=== PATIENT | female | born 1955 | race Caucasian/White ===

== ENCOUNTER 2023-02-25 04:01 | Emergency (ER) | payer MEDICARE, OTHER ==
[~2023-02-25] VITALS: Ht 167.6 cm; Wt 83.9 kg
[~2023-02-25 04:01] MED LIST: BIEST/PROG/TEST TOP; CALC1.25T PO; CYAN1000 PO; ERGO400 PO; FAMO20 PO; HYDSUL200 PO; LUTEIN PO; NORT75 PO; Omeprazole20 M1; SPIR25 PO; [UNRECOGNIZED DRUG - OTHER] PO
[2023-02-25 05:48] LABS: BASOPHILS ABSOLUTE AUTO 0.08 K/mm3 (0.00-0.23); BASOPHILS PERCENT AUTO 1 % (0-2); EOSINOPHILS ABSOLUTE AUTO 0.23 K/mm3 (0.00-0.68); EOSINOPHILS PERCENT AUTO 3 % (0-6); Hematocrit 42.6 % (33.0-51.0); Hemoglobin 14.5 g/dL (11.5-16.0); IMMATURE GRAN ABSOLUTE AUTO 0.04 K/mm3 (0.00-0.10); IMMATURE GRAN PERCENT AUTO 0 % (0-1); LYMPHOCYTES ABSOLUTE AUTO 2.24 K/mm3 (0.84-5.20); LYMPHOCYTES PERCENT AUTO 25 % (21-46); MONOCYTES ABSOLUTE AUTO 0.78 K/mm3 (0.16-1.47); MONOCYTES PERCENT AUTO 9 % (4-13); Mean Corpuscular HGB 31.7 pg (26.0-34.0); Mean Corpuscular Volume 93 fL (80-100); Mean Platelet Volume 10.3 fL (9.1-12.4); NEUTROPHILS ABSOLUTE AUTO 5.68 K/mm3 (1.96-9.15); NEUTROPHILS PERCENT AUTO 63 % (41-73); Platelet Count 389 K/mm3 (150-400); RDW Coefficient Variation 11.9 % (11.7-14.2); RDW Standard Deviation 40.1 fL (35.1-46.3); Red Blood Cell Count 4.58 M/mm3 (3.80-5.20); White Blood Cell Count 9.05 K/mm3 (4.00-11.30)
[2023-02-25 06:07] LABS: Albumin, Blood 3.3 g/dL (3.4-5.0); Bilirubin, Total 0.1 mg/dL (0.1-1.0); Bun/Creatinine Ratio 12.9 (12.0-20.0); Calcium, Blood 8.8 mg/dL (8.5-10.1); Creatinine, Blood 1.01 mg/dL (0.40-1.00); Globulin, Blood 3.4 g/dL (2.2-4.0); Potassium, Blood 3.9 mmol/L (3.5-5.5); Total Protein, Blood 6.7 g/dL (6.4-8.2)
[2023-02-25 06:33] VITALS: BP 123/67
== END 2023-02-25 06:50 | disposition home or self-care (01) ==
LOC: ER 04:01
PROVIDERS: Student in an Organized Health Care Education/Training Program
DX: R07.9 Chest pain, unspecified (principal); Z79.899 Other long term (current) drug therapy; M19.90 Unspecified osteoarthritis, unspecified site; K21.9 Gastro-esophageal reflux disease without esophagitis
CPT/HCPCS: 71046; 80053; 84484; 85025; 93005; 93010; 99285-25

== ENCOUNTER 2023-04-05 07:28 | Day surgery (SDC) | payer MEDICARE, OTHER ==
[~2023-04-05] VITALS: Ht 167.6 cm; Wt 84.4 kg
[~2023-04-05 07:28] MED LIST changes: +ATOR10 PO; +Celexa20 MG PO; +ERGO50000; +NITROGLYCERIN0.4 M3; +OCUVITE BLUE L1 EACH
[2023-04-05 09:18] VITALS: BP 105/73
== END 2023-04-05 09:19 | disposition home or self-care (01) ==
LOC: ORSCSDS 07:28
PROVIDERS: Internal Medicine Gastroenterology
PROC: 0DB68ZX Excision of Stomach, Via Natural or Artificial Opening Endoscopic, Diagnostic (ICD-10-PCS; principal; 2023-04-05 08:45)
PROC: 0DB98ZX Excision of Duodenum, Via Natural or Artificial Opening Endoscopic, Diagnostic (ICD-10-PCS; principal; 2023-04-05 08:45)
DX: R10.13 Epigastric pain (principal); K64.4 Residual hemorrhoidal skin tags; K21.9 Gastro-esophageal reflux disease without esophagitis; I10 Essential (primary) hypertension; F32.A Depression, unspecified; Z79.899 Other long term (current) drug therapy
CPT/HCPCS: 88305; 88341; 88342; J2704; J7120

== ENCOUNTER 2023-06-13 16:13 | Observation (INO) | payer MEDICARE, OTHER ==
[~2023-06-13] VITALS: Ht 167.6 cm; Wt 80.0 kg
[2023-06-13] MEDS ORDERED: Piperacillin/Tazobactam Sod 4.5 GM in NS 100 ML IV ONE (16:55)
[2023-06-13] MEDS ORDERED: NS 1,000 ML IV SCH (16:55)
[2023-06-13] MEDS ORDERED: Ketorolac Tromethamine 15mg Vial IV ONE (17:20)
[2023-06-13] MEDS ORDERED: Ondansetron HCl 2 MG / ML 2ML Vial IV PRN ×2 (17:40→19:45)
[2023-06-13] MEDS ORDERED: HYDROmorphone HCl/Pf 1MG SYR IV PRN (17:40)
[2023-06-13] MEDS ORDERED: Acetaminophen 325 MG TABLET PO PRN (19:45)
[2023-06-13] MEDS ORDERED: FentaNYL Citrate 50 MCG/ML 2 ML Injection IV PRN (19:45)
[2023-06-13] MEDS ORDERED: Lactated Ringer's 1,000 ML IV SCH (19:45)
[2023-06-13] MEDS ORDERED: FLU VACC QS2023-24(6MOS UP)/PF 60 MCG/0.5 ML SYRINGE IM SCH (19:45)
[2023-06-13 20:29] VITALS: BP 134/74
--- NOTE | 2023-06-13 20:30 | NUR ---
ARRIVAL PT ARRIVED TO UNIT VIA WHEELCHAIR. A/OX4, ON RA, IN NO DISTRESS. C/O RUQ PAIN, NO N/V NOTED. PLAN FOR PAIN MANAGEMENT AND IV ABX FOR THE NIGHT.
[2023-06-14] VITALS (16 sets, daily range): BP systolic 97–135; BP diastolic 52–75
[2023-06-14] MEDS ORDERED: Ampicillin Sod/Sulbactam Sod 3 GM in NS 100 ML IV SCH
--- NOTE | 2023-06-14 04:40 | NUR ---
SHIFT SUMMARY VSS. PT SLEPT ON AND OFF T/O THE NIGHT, MEDICATED FOR PAIN W/ PRN'S W/ GOOD RESULTS. UTILIZING K PAD. OOB TO BATHROOM W/ SBA. VOIDING W/O DIFFICULTY. PT HAS BEEN NPO SINCE 0000 FOR SURGERY TODAY. NO N/V NOTED.
[2023-06-14] MEDS ORDERED: Lactated Ringer's 1,000 ML IV SCH (12:15)
[2023-06-14] MEDS ORDERED: propofoL 20 ML IV ONE (12:19)
[2023-06-14] MEDS ORDERED: Sugammadex Sodium 200 MG/2ML SDV (100 MG/ML) ONE (12:19)
[2023-06-14] MEDS ORDERED: Ondansetron HCl 2 MG / ML 2ML Vial ONE (12:19)
[2023-06-14] MEDS ORDERED: Dexamethasone Sod Phos 10 MG/ML 1ML VIAL ONE (12:19)
[2023-06-14] MEDS ORDERED: Lidocaine HCl 2% 20 ML MDV ONE (12:19)
[2023-06-14] MEDS ORDERED: Rocuronium Bromide 10 MG/ML 5ML Injection IV ONE ×2 (12:19→13:44)
[2023-06-14] MEDS ORDERED: FentaNYL Citrate 50 MCG/ML 2 ML Injection ONE (12:19)
[2023-06-14] MEDS ORDERED: Ketorolac Tromethamine 30mg Vial ONE (12:20)
[2023-06-14] MEDS ORDERED: FentaNYL Citrate 50 MCG/ML 2 ML Injection IV PRN ×3 (12:20→12:25)
[2023-06-14] MEDS ORDERED: Ondansetron HCl 2 MG / ML 2ML Vial IV PRN (12:20)
[2023-06-14] MEDS ORDERED: Midazolam HCl 1MG / ML 2ML Vial IV PRN (12:25)
[2023-06-14] MEDS ORDERED: Lidocaine HCl 1% 5 ML SYR INJ ONE (12:25)
[2023-06-14] MEDS ORDERED: HYDROmorphone HCl/Pf 1MG SYR IV PRN (12:25)
--- NOTE | 2023-06-14 12:25 | NUR ---
[facility]
--- NOTE | 2023-06-14 12:56 | NUR ---
PT TO [facility]IA [facility] FOR LAP DELVIN. Pre-Op teaching done. Pt verbalizes understanding. History, Chart, Medications and Allergies reviewed before start of procedure.Patient confirms NPO status and agrees with scheduled surgery.
[2023-06-14] MEDS ORDERED: Bupivacaine 0.5% HCl 5 MG/ML 30MLVIAL ONE (13:07)
[2023-06-14] MEDS ORDERED: Midazolam HCl 1MG / ML 2ML Vial IV ONE (13:10)
[2023-06-14] MEDS ORDERED: HYDROcodone 5-APAP 325 TAB PO PRN (14:55)
[2023-06-14] MEDS ORDERED: HYDROmorphone HCl/Pf 1MG SYR ONE (15:25)
--- NOTE | 2023-06-14 15:55 | NUR ---
POST OP RETURN TO SURGICAL UNIT PLEASANT, BUT DROWSY. ABD SOFT, MOD DISTENTION. 4 LAP SITES w/ GAUZE & TEGADERM. NO DRNG NOTED. DENIES N/V. CLEAR LQ's GIVEN. LUNGS CLEAR. HRR. SPOUSE AT SIDE.
--- NOTE | 2023-06-14 19:20 | NUR ---
SHIFT SUMMARY PT HAS DONE WELL POST OP. TOLERATING CLEAR LQs, VOIDED, BUT NOT PASSING GAS YET. HAS BEEN UP MOVING AROUND. PLEASANT & COOPERATIVE.
[2023-06-15 03:45] VITALS: BP 114/65
--- NOTE | 2023-06-15 04:56 | NUR ---
SHIFT SUMMARY POD1 LAP DELVIN. X4 LAP SITES ARE C/D/I. VSS. PT SLEPT WELL T/O THE NIGHT. PT DID NOT REQUIRE ANY PAIN MEDIDCATION T/O THE NIGHT. TOLLERATING PO INTAKE W/O N/V. AMBULATING TO THE BATHROOM TO VOID W/O DIFFICULTY. OVERALL NO ACUTE EVENTS NOTED, PLAN TO POSSIBLY D/C TODAY IF CLEARED BY SURGEON.
[2023-06-15 07:25] VITALS: BP 104/71
[2023-06-15] MEDS ORDERED: Norco 5-325 Ta1 EACH PO (09:06)
--- NOTE | 2023-06-15 09:56 | NUR ---
DISCHARGE: PACKET PRINTED AND PT EDUCATED.PT ALREADY GIVEN SCRIPT FOR PAIN MED. PT VERBALZIED UNDERSTANDING. LEFT UNIT VIA WHEELCHAIR AT [id number]
== END 2023-06-15 09:22 | disposition home or self-care (01) ==
LOC: ER 16:13 → SURS 16:14
PROVIDERS: ADMIT Surgery
PROC: 0FT44ZZ Resection of Gallbladder, Percutaneous Endoscopic Approach (ICD-10-PCS; principal; 2023-06-14 13:00)
DX: K80.00 Calculus of gallbladder with acute cholecystitis without obstruction (principal); K21.9 Gastro-esophageal reflux disease without esophagitis; R10.0 Acute abdomen
CPT/HCPCS: 36415; 74177; 80053; 83690; 85025; 88304; 96361; 96365-59; 96366; 96367; 96375; 96376; 99285-25; A9270; G0378; J0295; J1100; J1170; J1885; J2250; J2405; J2543; J2704; J3010; J7030; J7120; Q9967